=== PATIENT | male | born 1950 | race Caucasian/White ===

== ENCOUNTER 2025-03-06 00:47 | Outpatient (CLI) | payer OTHER, SELFPAY ==
--- NOTE | 2025-03-06 | DI.US_ITS ---
Exam(s) US ABDOMEN LIMITED EXAM: US ABDOMEN LIMITED CLINICAL HISTORY: F/U ABNL CT,FAT STRANDING BETWEEN GB,DUODENUM,GALLSTONE,R93.5,? ACUTE TECHNIQUE: Ultrasound abdomen performed using standard protocol. COMPARISON: CT CT Abdomen w/ Contrast from 03/05/2025 FINDINGS: PANCREAS: Normal where visualized. LIVER: Normal. Hepatopetal flow in the Portal Vein. The liver measures in 17.6 cm length. There are h epatic cysts present. The largest is in the left lobe. These were present on the prior CT examinati on. No suspicious hepatic masses are seen. GALLBLADDER:There is an immobile 2.1 cm stone in the neck of the gallbladder. The gallbladder measur es 5 cm in diameter. There is gallbladder wall thickening of almost 5 mm. No pericholecystic fluid identified. BILIARY SYSTEM: Common bile duct measures < 7 mm. No intrahepatic biliary ductal dilation. FUENTSE'S SIGN: Negative. RIGHT KIDNEY: Kidney is normal in size. No evidence of renal calculi. No evidence of hydronephrosis. There is a simple cyst on the inferior pole of the right kidney measuring 5.3 x 3.0 cm. This was pr esent on the prior examination. No follow-up is recommended. ASCITES: None seen. IMPRESSION: 1. 2.1 cm immobile bile gallstone in the neck of the gallbladder with gallbladder wall thickening and a distended gallbladder. Acute cholecystitis should be considered. 2. Hepatic and renal cysts. DATA REPOSITORY:
--- NOTE | 2025-03-06 | DI.NM_ITS ---
Exam(s) NM HEPATOBILIARY SCAN GRP EXAM: NM HEPATOBILIARY SCAN GRP CLINICAL HISTORY: F/U ABNL CT,FAT STRANDING BETWEEN GB,DUODENUM, RECENT BIOPSY,GALLSTONE. TECHNIQUE: Injected dose: 5 mCi Tc-99 mebrofenin Initial dynamic images: 60 minutes COMPARISON: CT CT Abdomen w/ Contrast from 03/05/2025 US US ABDOMEN LIMITED from 03/06/2025 FINDINGS: Normal hepatic transit time. Prompt excretion into the small bowel. The gallbladder is not visualized on this examination. The examination was held out for 2 hours and the gallbladder was not visualized. IMPRESSION: 1. Findings suspicious for acute cholecystitis. SNM guidelines: Delayed vybllug-yu-[id number] transit beyond 60 min raises the suspicion for partial commo n bile duct (CBD) obstruction. Gallbladder ejection fraction <35% has a good correlation with acalculous disease (i.e., chronic acal culous cholecystitis, cystic duct syndrome, sphincter of Oddi disease).
--- NOTE | 2025-03-06 17:54 | NUR.NOTE ---
Results of Diagnostic imaging done today sent for continuity of care and continued to treatment to [facility] for surgical need per request.
== END 2025-03-06 01:07 ==
PROVIDERS: PCP Nurse Practitioner Family; Visit Provider Nurse Practitioner Family
DX: R93.5 Abnormal findings on diagnostic imaging of other abdominal regions, including retroperitoneum (principal); N28.1 Cyst of kidney, acquired
CPT/HCPCS: 78227; 76705